=== PATIENT | female | born 2000 | race Caucasian/White ===

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

== ENCOUNTER 2022-05-28 22:40 | Emergency (ER) | payer OTHER ==
[~2022-05-28] VITALS: Ht 165.1 cm; Wt 59.0 kg
[~2022-05-28 22:40] MED LIST changes: -ACET-7756 PO; +ACET-7796 PO
[2022-05-28 22:54] VITALS: BP 132/91
[2022-05-28] MEDS ORDERED: IBUPROFEN 600 MG TAB PO ONE (23:45)
[2022-05-29] MEDS ORDERED: IBUPROFEN 600 MG TAB ONE (01:08)
--- NOTE | 2022-05-29 01:14 | NUR ---
PT CLEARED FOR D/C AND LEFT WITHOUT INSTRUCTIONS.
[2022-06-01] MEDS ORDERED: DOXY-690 PO (08:20)
--- NOTE | 2022-06-01 08:20 | NUR ---
LATE ENTRY. RECEIVED POSITIVE CHLAMYDIA RESULT. FORM GIVEN TO DR HDZ. DR HDZ ATTEMPTED TO CALL PT, LEFT MESSAGE. RX OF DOXYCYCLINE SENT TO PTS PHARMACY. FORM PLACED IN BINDER AND SENT TO INFECTION CONTROL.
--- NOTE | 2022-06-01 21:54 | NUR ---
PT CALLED BACK, GIVEN PHARMACY INFO AND NEW MEDICATION SHE WILL BE TAKING.
== END 2022-05-29 01:14 | disposition home or self-care (01) ==
LOC: MED 22:40
DX: J02.9 Acute pharyngitis, unspecified (principal)
CPT/HCPCS: 87491; 99283

== ENCOUNTER 2023-11-27 23:10 | Emergency (ER) | payer OTHER ==
[~2023-11-27] VITALS: Ht 165.1 cm; Wt 63.5 kg
[~2023-11-27 23:10] MED LIST changes: -ACET-8386 PO; +ACET-8905 PO; +DOXY-690 PO
[2023-11-27 23:45] VITALS: BP 126/72; PULSE 68; RESP 18; TEMP 97.6; O2SAT 98
[2023-11-28 00:03] VITALS: O2SAT 98
[2023-11-28] MEDS: LIDOCAINE MPF 1% 10 MG/ML VIAL INJ ONE (00:43)
[2023-11-28] MEDS ORDERED: BACITRACIN OINT 500 UNITS/GM PKT TP ONE (00:49)
[2023-11-28] MEDS: BACITRACIN OINT 500 UNITS/GM PKT TP ONE (00:51)
== END 2023-11-28 00:52 | disposition home or self-care (01) ==
LOC: MED 23:10
DX: S91.312A Laceration without foreign body, left foot, initial encounter (principal); Z79.1 Long term (current) use of non-steroidal anti-inflammatories (NSAID); Z79.2 Long term (current) use of antibiotics; Z79.899 Other long term (current) drug therapy; Z91.048 Other nonmedicinal substance allergy status; W26.8XXA Contact with other sharp object(s), not elsewhere classified, initial encounter; Y93.89 Activity, other specified; Y92.89 Other specified places as the place of occurrence of the external cause; Y93.G1 Activity, food preparation and clean up
CPT/HCPCS: 12001; 90471; 90715; 99283; J2001

== ENCOUNTER 2024-01-06 08:29 | Emergency (ER) | payer OTHER ==
[~2024-01-06] VITALS: Ht 165.1 cm; Wt 62.6 kg
[2024-01-06 08:47] VITALS: BP 134/87; PULSE 70; RESP 18; TEMP 98.1; O2SAT 99
[2024-01-06 10:06] VITALS: BP 134/87; PULSE 70; RESP 18; TEMP 98.1; O2SAT 99
== END 2024-01-06 10:02 | disposition home or self-care (01) ==
LOC: MED 08:29
DX: K64.4 Residual hemorrhoidal skin tags (principal); Z79.899 Other long term (current) drug therapy; Z91.09 Other allergy status, other than to drugs and biological substances
CPT/HCPCS: 99281

== ENCOUNTER 2024-04-15 14:01 | Emergency (ER) | payer OTHER ==
[~2024-04-15] VITALS: Ht 167.6 cm; Wt 71.7 kg
[2024-04-15 14:06] VITALS: BP 120/71; PULSE 68; RESP 16; TEMP 98; O2SAT 99
[2024-04-15] MEDS ORDERED: HYDR-2734 TP (14:51)
[2024-04-15 14:56] VITALS: BP 120/71; PULSE 68; RESP 16; TEMP 98; O2SAT 99
== END 2024-04-15 14:56 | disposition home or self-care (01) ==
LOC: MED 14:01
DX: K64.4 Residual hemorrhoidal skin tags (principal); Z79.899 Other long term (current) drug therapy; Z91.09 Other allergy status, other than to drugs and biological substances
CPT/HCPCS: 81025; 99283